=== PATIENT | male | born 1960 | race Caucasian/White ===

== ENCOUNTER 2021-02-25 10:01 | Outpatient (REF) | payer OTHER, SELFPAY ==
[2021-02-25 11:46] LABS: Hematocrit 40.7 % (42-52); Hemoglobin 13.5 g/dl (14.0-18.0); Mean Corpuscular HGB Conc 33.2 g/dl (31.0-36.0); Mean Corpuscular Hemoglobin 29.6 pg (27.0-33.0); Mean Corpuscular Volume 89.3 fL (80-98); Mean Platelet Volume 10.8 fL (9.4-12.4); Platelet Count 233 X10*3/uL (160-400); Red Blood Count 4.56 X10*6/uL (4.60-5.80); Red Cell Distribution Width 13.2 % (11.0-16.0); White Blood Count 5.9 X10*3/uL (4.8-10.8)
[2021-02-25 12:16] LABS: Alanine Aminotransferase 34 U/L (0-40); Albumin Level 4.4 g/dL (3.5-5.0); Alkaline Phosphatase 69 U/L (39-117); Anion Gap 12 (12-20); Aspartate Amino Transferase 22 U/L (5-37); Bilirubin Total 0.5 mg/dL (0.0-1.0); Blood Urea Nitrogen 17 mg/dL (9-16); Calcium 9.7 mg/dL (8.4-10.2); Carbon Dioxide 27 mmol/L (22-29); Chloride 105 mmol/L (96-108); Estimated Glomerular Filt Rate > 60; Glucose Random 90 mg/dL (60-115); Potassium 4.1 mmol/L (3.3-5.1); Sodium 140 mmol/L (135-145); Total Protein 7.1 g/dL (6.5-8.0)
== END 2021-02-25 10:02 | disposition home or self-care (01) ==
LOC: HO.LAB 10:01
PROVIDERS: PCP Internal Medicine; Referring Provider Internal Medicine; Visit Provider Nurse Practitioner Family
DX: Z01.818 Encounter for other preprocedural examination (principal); R06.83 Snoring
CPT/HCPCS: 36415; 80053; 85027; 99202; 99212

== ENCOUNTER → 2021-04-07 09:55 | Outpatient (BNVA) | payer OTHER, SELFPAY | PROVIDERS: PCP Internal Medicine; Visit Provider Urology | DX: N40.1 Benign prostatic hyperplasia with lower urinary tract symptoms (principal); N13.8 Other obstructive and reflux uropathy; R39.11 Hesitancy of micturition; R39.12 Poor urinary stream; R97.20 Elevated prostate specific antigen [PSA] | CPT/HCPCS: 99202 ==

== ENCOUNTER 2021-04-09 08:20 | Day surgery (SDC) | payer OTHER, SELFPAY ==
[2021-04-06 15:55] VITALS: BMI 30.4
--- NOTE | 2021-04-08 13:39 | HO.ANESPROP2 ---
HPI - Anesthesia Eval Consult details Narrative: 60yo M for Colonoscopy PMFSH Active Problems Active Problems: All Active Problems (Updated 04/07/21 @ 10:27 by Zach Martinez MD) Weak urinary stream (Acute) Urinary hesitancy (Acute) BPH w urinary obs/LUTS (Acute) Elevated PSA (Acute) Past Medical History Medical History (Updated 04/07/21 @ 10:27 by Zach Martinez MD) Elevated cholesterol GERD (gastroesophageal reflux disease) HTN (hypertension) Insomnia Leg pain, left Surgical History Surgical History (Updated 04/06/21 @ 15:46 by Sarah Turcios, RN) Hx of colonoscopy Social History Social History (Updated 04/06/21 @ 15:57 by Sarah Turcios, RN) Alcohol intake: current Alcohol intake frequency: a few times a week Alcohol type: beer Patient Tobacco Use Status: Former Tobacco user Quit Date: 2009 Meds Allergies Allergy/AdvReac Type Severity Reaction Status Date / Time No Known Allergies Allergy Verified 04/07/21 09:58 Home Medications Medication Instructions Recorded Confirmed Last Taken Type amitriptyline 25 mg tablet 25 mg PO BEDTIME PRN 02/25/21 04/06/21 Unknown History aspirin 81 mg tablet,delayed 81 mg PO DAILY 02/25/21 04/06/21 Unknown History release atorvastatin 40 mg tablet 40 mg PO BEDTIME 02/25/21 04/06/21 Unknown History gabapentin 800 mg tablet 800 mg PO TID 02/25/21 04/06/21 Unknown History ibuprofen 800 mg tablet 800 mg PO Q8H 02/25/21 04/06/21 Unknown History lisinopril 20 1 tab PO DAILY 02/25/21 04/06/21 Unknown History mg-hydrochlorothiazide 12.5 mg tablet metoprolol succinate 100 mg 100 mg PO DAILY 02/25/21 04/06/21 Unknown History tablet,extended release 24 hr omeprazole 20 mg capsule,delayed 20 mg PO DAILY 02/25/21 04/06/21 Unknown History release Exam Exam Date and Time: April 08, 2021 1339 Height,Weight and Vital Signs: Height 5 ft 8 in Weight 90.718 kg Pertinent Lab Results Pertinent Lab Results: Laboratory Tests 02/25/21 02/25/21 10:55 10:55 WBC 5.9 Hgb 13.5 L Hct 40.7 L Plt Count 233 Sodium 140 Potassium 4.1 Chloride 105 Carbon Dioxide 27 BUN 17 H Creatinine 0.87 Assessment and Plan Assessment Anesthesia Assessment: Chart Reviewed
[2021-04-09 08:54] VITALS: BP 129/93; PULSE 90; RESP 16; TEMP 36.8; O2SAT 98
[2021-04-09] MEDS: Lactated Ringers 1,000 ML 100 ML IVCONT (09:11)
--- NOTE | 2021-04-09 09:11 | MHC.SHP ---
Pre-Procedural Eval Section A Date of Service: 04/09/21 Section B Chief Complaint: Screening Details of Present Illness: hx of polyps Relevant Family History (Specify if Yes): No Relevant Social History: None Present Medications: see Short Stay Collaborative assessment Medical History: Significant History (Elevated cholesterol GERD (gastroesophageal reflux disease) HTN (hypertension) Insomnia Leg pain, left) History of Previous Operations: Relevant previous surgery/procedure and date(s) (colonoscopy many years ago) Allergies: Allergies Allergy/AdvReac Type Severity Reaction Status Date / Time No Known Allergies Allergy Verified 04/07/21 09:58 Review of Systems Sugical H&P ROS: Negative: Constitution, Cardiovascular, Respiratory, Neurological, Psychiatric, Hem-Onc, Allergic/Immunologic, Gastrointestinal, Genitourinary, Musculoskeletal, Integumentary, Endocrine and Eyes/Ears/Nose/Throat Exam Surgical H&P Exam: Normal: HEENT, Normal: Heart, Normal: Lungs, Normal: Extremities, Normal: Abdomen, Normal: Skin and Normal: Neurological Plan Diagnosis/Plan: Unchanged I have reviewed the history and physical and performed a pertinent physical examination on my patient. No changes have occurred unless specified.
--- NOTE | 2021-04-09 10:36 | P.BOP_ITS ---
Brief Operative Note Date of Service: 04/09/21 Pre-op diagnosis: colon screening Post-op diagnosis: same Procedure: see op note Surgeon: Valerie Zamora MD Anesthesia: MAC Was an Brim Edge Trimmer used for this Procedure?: No Estimated blood loss (mL): 0 Condition: stable Disposition: PACU
--- NOTE | 2021-04-09 10:36 | W.PM.OPN ---
Operative Note Operative Note Date of Service: 04/09/21 Narrative: Operative Information Procedure Description: Colonoscopy COLONOSCOPY Instrument: Olympus variable stiffness adult scope 190L Colonoscopy Monitoring: Vital signs and clinical assessment, continuous EKG monitoring, Pulse oximetry, Carbon Dioxide monitoring and blood pressure monitoring were done throughout the procedure. Colon withdrawal time was 11 minutes. Procedure: The patient was placed in the left lateral decubitis position and pre-procedure medications were administered. After a digital rectal examination of the ano-rectum, the video colonoscope was inserted into the rectum and advanced through the colon to the cecum/TI. The colonoscope was slowly withdrawn in a retrograde panoramic fashion and the colon mucosa was carefully examined including a retroflexed view of the rectum. Findings and interventions are described below. Procedure Difficulty: easy Findings: Terminal Ileum-normal Cecum:normal Ascending Colon: normal Transverse Colon -normal Descending Colon:normal Sigmoid Colon: mild diverticulosis noted, small tics Rectum: Retroflexion with small internal hemorrhoids, grade I Anorectum - normal Colon preparation: [place] Bowel Preparation Scale Right colon; 2 Transverse colon: 2 Left colon; 2 (0 = Unprepared colon segment with mucosa not seen due to solid stool that cannot be cleared. 1 = Portion of mucosa of the colon segment seen, but other areas of the colon segment not well seen due to staining, residual stool and/or opaque liquid. 2 = Minor amount of residual staining, small fragments of stool and/or opaque liquid, but mucosa of colon segment seen well. 3 = Entire mucosa of colon segment seen well with no residual staining, small fragments of stool or opaque liquid) Impression and Post Procedure Diagnosis: internal hemorrhoids diverticular disease Plan: High fiber diet leaflet Avoid straining at stool, epsom salts and sitz bath, anusol supps or cream Repeat Colonoscopy in 10 years or earlier if clinically indicated Above findings were reviewed with the patient and relevant handouts were provided if indicated.
[2021-04-09 10:43] VITALS: BP 110/72; PULSE 76; RESP 16; TEMP 36.9; O2SAT 100
[2021-04-09 11:05] VITALS: BP 138/91; PULSE 76; RESP 16; TEMP 36.9; O2SAT 98
--- NOTE | 2021-04-09 16:52 | HO.POSTANES ---
Post Anesthesia Evaluation Post Anesthesia Evaluation Vital Signs: Vital Signs Temp Pulse Resp BP Pulse Ox 04/09/21 11:05 98.4 F 76 16 138/91 H 98 04/09/21 10:43 98.4 F 76 16 110/72 100 04/09/21 08:54 98.2 F 90 16 129/93 H 98 Anesthesia: Monitored Mental Status: Awake Pain Control: Satisfactory Nausea/Vomiting: None Hydration: Adequate Anesthesia-Related Issues: No Anes. Related Issues
== END 2021-04-09 11:49 | disposition home or self-care (01) ==
PROVIDERS: PCP Internal Medicine; Visit Provider Internal Medicine Gastroenterology
PROC: 0DJD8ZZ Inspection of Lower Intestinal Tract, Via Natural or Artificial Opening Endoscopic (ICD-10-PCS; CPT 45378; principal; 2021-04-09 10:20)
DX: Z12.11 Encounter for screening for malignant neoplasm of colon (principal); Z86.010 Personal history of colon polyps; K57.30 Diverticulosis of large intestine without perforation or abscess without bleeding; K21.9 Gastro-esophageal reflux disease without esophagitis; K64.0 First degree hemorrhoids; I10 Essential (primary) hypertension; R06.83 Snoring; E78.00 Pure hypercholesterolemia, unspecified; Z87.891 Personal history of nicotine dependence; Z79.82 Long term (current) use of aspirin; Z79.899 Other long term (current) drug therapy
CPT/HCPCS: G0105

== ENCOUNTER → 2021-05-19 10:14 | Outpatient (BNVA) | payer OTHER, SELFPAY | PROVIDERS: Referring Provider Internal Medicine; Visit Provider Nurse Practitioner Family | DX: K21.9 Gastro-esophageal reflux disease without esophagitis (principal); K57.90 Diverticulosis of intestine, part unspecified, without perforation or abscess without bleeding | CPT/HCPCS: 99212 ==

== ENCOUNTER → 2021-09-10 09:00 | Outpatient (BNVA) | payer OTHER, SELFPAY | PROVIDERS: PCP Internal Medicine; Visit Provider Urology | DX: N40.1 Benign prostatic hyperplasia with lower urinary tract symptoms (principal); N13.8 Other obstructive and reflux uropathy; R35.1 Nocturia; R39.11 Hesitancy of micturition; R97.20 Elevated prostate specific antigen [PSA] | CPT/HCPCS: 51798; 99212 ==

== ENCOUNTER → 2021-11-17 09:45 | Outpatient (BNVA) | payer OTHER, SELFPAY | PROVIDERS: PCP Internal Medicine; Referring Provider Internal Medicine; Visit Provider Nurse Practitioner Family | DX: K57.90 Diverticulosis of intestine, part unspecified, without perforation or abscess without bleeding (principal) | CPT/HCPCS: 99212 ==

== ENCOUNTER 2021-12-24 10:43 | Outpatient (REF) | payer OTHER, SELFPAY ==
--- NOTE | ~2021-12-24 | US_ITS ---
EXAMINATION: US PELVIS LIMITED (BLADDER) CLINICAL INFORMATION: Poor urinary stream. COMPARISON: No similar priors. TECHNIQUE: Real-time imaging of the bladder. FINDINGS: BLADDER: Partially distended. Bilateral ureteral jets are demonstrated. Prevoid bladder volume is 146 mL. Postvoid bladder volume is 62.3 mL. ADDITIONAL FINDINGS: Enlarged prostate measuring 4.8 x 3.7 x 4.4 cm, volume of 41 mL. US/US bladder IMPRESSION: Enlarged prostate with increase post void bladder volume suggesting outlet obstruction.
== END 2021-12-24 10:44 | disposition home or self-care (01) ==
LOC: HO.US 10:43
PROVIDERS: Visit Provider Urology
DX: N40.1 Benign prostatic hyperplasia with lower urinary tract symptoms (principal); R39.12 Poor urinary stream; N13.8 Other obstructive and reflux uropathy
CPT/HCPCS: 76857

== ENCOUNTER 2022-03-10 08:16 | Outpatient (REF) | payer OTHER, SELFPAY ==
[2022-03-10 10:08] LABS: PSA,Total (Free>4and<10) 2.85 ng/mL (0.00-4.00)
== END 2022-03-10 08:17 | disposition home or self-care (01) ==
LOC: HO.LAB 08:16
PROVIDERS: PCP Internal Medicine; Visit Provider Urology
DX: N40.1 Benign prostatic hyperplasia with lower urinary tract symptoms (principal); N13.8 Other obstructive and reflux uropathy; Z12.5 Encounter for screening for malignant neoplasm of prostate
CPT/HCPCS: 36415; 84153

== ENCOUNTER → 2022-03-11 09:36 | Outpatient (BNVA) | payer OTHER, SELFPAY | PROVIDERS: PCP Internal Medicine; Visit Provider Urology | DX: R97.20 Elevated prostate specific antigen [PSA] (principal); N40.1 Benign prostatic hyperplasia with lower urinary tract symptoms; N13.8 Other obstructive and reflux uropathy | CPT/HCPCS: Q3014 ==

== ENCOUNTER 2023-02-25 07:27 | Outpatient (REF) | payer OTHER, SELFPAY ==
[2023-02-25 08:26] LABS: Prostate Specific Antigen 2.45 ng/mL (<0.05-4.0)
== END 2023-02-25 07:28 | disposition home or self-care (01) ==
LOC: HO.LAB 07:27
PROVIDERS: PCP Internal Medicine; Visit Provider Urology
DX: Z12.5 Encounter for screening for malignant neoplasm of prostate (principal); N13.8 Other obstructive and reflux uropathy; N40.1 Benign prostatic hyperplasia with lower urinary tract symptoms; R97.20 Elevated prostate specific antigen [PSA]
CPT/HCPCS: 36415; 84153

== ENCOUNTER 2023-03-11 10:43 | Outpatient (AMB) | payer OTHER, SELFPAY ==
--- NOTE | 2023-03-11 10:44 | MHC.OFFVIS ---
Intake Intake Visit Reasons: 1Y PSA(set) Intake Note: Patient is present for Telephone PSA Urology Med: Finasteride, Tamsulosin Antibiotic Allergy: None Blood Thinner: Aspirin Pharmacy: [facility] Allergies No Known Allergies Allergy (Verified 03/11/23 10:46) Medication List - Last Reconciled 03/11/23 by Zach Martinez MD amitriptyline 25 mg PO BEDTIME PRN aspirin 81 mg PO DAILY atorvastatin 40 mg PO BEDTIME bisacodyl (Dulcolax (bisacodyl)) 10 mg (2 x 5 mg) PO ONCE 1 day finasteride 5 mg PO DAILY 90 days gabapentin 800 mg PO TID ibuprofen 800 mg PO Q8H lisinopril-hydrochlorothiazide 20-12.5 mg 1 tab PO DAILY methylcellulose (laxative) (Citrucel) 500 mg PO DAILY metoprolol succinate ER 100 mg PO DAILY omeprazole 20 mg PO BID polyethylene glycol 3350 (Miralax) 238 grams PO ONCE HPI HPI Comments History of Present Illness Details Darío is a very pleasant male. He is a patient of Dr. Briseno. He is seen for following urologic conditions - weak stream - incomplete emptying - elevated PSA Telemedicine evaluation 15 minute consultation Babytree karrie Video attempted Improved stream maintain PSA remains low Continue 6 month review Retrograde ejaculation Stop tamsulosin Continue finasteride Lower urinary tract symptoms Progressive Initial symptoms - primarily hesitancy with weakness of stream suggestive of obstructive symptoms Current - stream improved, nocturia x1 PSA 02/11 4.4, 03/15 2.8, 03/16 2.5 No family history of prostate cancer Imaging - 02/12 Bladder ultrasound, 40 g prostate, 60 cc residual SILVIA 2+ Current therapy finasteride PFSH Medical History Elevated cholesterol GERD (gastroesophageal reflux disease) HTN (hypertension) Insomnia Leg pain, left Surgical History Hx of colonoscopy Social History Alcohol intake: current Alcohol intake frequency: a few times a week Alcohol type: beer Patient Tobacco Use Status: Former Tobacco user Quit Date: 2009 Review of Systems Const All systems reviewed & are unremarkable except as noted in HPI and below Reports no additional complaints Resp Reports no additional complaints GI Reports no additional complaints Reports as per HPI Musc Reports no additional complaints Physical Exam Telemedicine evaluation Appropriate responses Regular breathing rate and rhythm HEENT Head: Yes normal to inspection Ears: hearing grossly normal bilaterally Eyes General: appearance normal, both eyes and all related structures Neck Neck: Yes normal visual inspection Chest Chest palpation & inspection: normal inspection of the chest Resp Effort & Inspection: normal respiratory effort and able to speak in complete sentences Assessment & Plan Assessment & Plan (1) Weak urinary stream: Code(s): R39.12 - Poor urinary stream (2) Elevated PSA: Code(s): R97.20 - Elevated prostate specific antigen [PSA] (3) BPH w urinary obs/LUTS: Code(s): N40.1 - Benign prostatic hyperplasia with lower urinary tract symptoms; N13.8 - Other obstructive and reflux uropathy Plan 6 month follow-up office labs Orders: Orders Prostate Specific Antigen 6 Months N13.8 - Other obstructive and reflux uropathy, N40.1 - Benign prostatic hyperplasia with lower urinary tract symptoms Medications: Refilled finasteride 5 mg PO DAILY 90 days 90 tabs 2RF N13.8 - Other obstructive and reflux uropathy, N40.1 - Benign prostatic hyperplasia with lower urinary tract symptoms, R33.9 - Retention of urine, unspecified, R39.12 - Poor urinary stream Discontinued tamsulosin Discontinued Reason: Doctor's Order 0.4 mg PO BEDTIME 90 days 90 caps 1RF N40.1 - Benign prostatic hyperplasia with lower urinary tract symptoms, R35.1 - Nocturia, R39.12 - Poor urinary stream Patient Instructions: Imaging studies, laboratory and physical exam results were discussed and reviewed in detail. No major barriers to patient understanding were identified. An opportunity to ask questions regarding the treatment plan was provided. All questions were answered. The patient expressed understanding and agreement with the above treatment plan. The patient is aware they should contact our office by phone for worsening of their current condition or the appearance of new urologic symptoms. Compliance is encouraged with any medications and followup testing that is ordered. It is a privilege to participate in the urologic care of your patient. If you have any questions or concerns regarding treatment for the above conditions, or other urologic issues, please do not hesitate to contact me. The office telephone contact is [phone]. This note is constructed using voice recognition software. While every effort has been made to ensure accuracy fugitive investigator errors may have been included. Yours sincerely, Dr Zahc Martinez MD, [facility] - Urology Providers of Expert, Compassionate Care for the Genitourinary System Telehealth Telehealth Location of provider rendering services: practice address Location of patient: address on file Patient Identification confirmed using: Name, : Yes Telehealth method: video Patient verbally consented to treatment: Yes Patient verbally consented to billing insurance company: Yes Patient informed of any privacy concerns related to visit: Yes Coding Level of Care Code Tele Est Pt Level 3 (58789) Diagnoses Weak urinary stream R39.12 Elevated PSA R97.20 BPH w urinary obs/LUTS N40.1; N13.8
== END 2023-03-11 11:51 | disposition home or self-care (01) ==
LOC: HO.HUSH 10:43
PROVIDERS: PCP Internal Medicine; Visit Provider Urology
DX: N40.1 Benign prostatic hyperplasia with lower urinary tract symptoms (principal); R39.12 Poor urinary stream; R97.20 Elevated prostate specific antigen [PSA]; N13.8 Other obstructive and reflux uropathy
CPT/HCPCS: 99213

== ENCOUNTER → 2023-03-11 10:43 | Outpatient (BNVA) | payer OTHER, SELFPAY | PROVIDERS: PCP Internal Medicine; Visit Provider Urology | DX: N40.1 Benign prostatic hyperplasia with lower urinary tract symptoms (principal); N13.8 Other obstructive and reflux uropathy; R97.20 Elevated prostate specific antigen [PSA]; R39.12 Poor urinary stream; R33.9 Retention of urine, unspecified | CPT/HCPCS: Q3014 ==

== ENCOUNTER 2023-11-17 14:30 | Outpatient (REF) | payer OTHER, SELFPAY | END 2023-11-17 14:31 | disposition home or self-care (01) | LOC: HO.LAB 14:30 | PROVIDERS: PCP Internal Medicine; Visit Provider Urology | DX: Z12.5 Encounter for screening for malignant neoplasm of prostate (principal); N40.1 Benign prostatic hyperplasia with lower urinary tract symptoms; N13.8 Other obstructive and reflux uropathy | CPT/HCPCS: 36415; 84153 ==

== ENCOUNTER 2023-11-22 15:27 | Outpatient (AMB) | payer OTHER, SELFPAY ==
--- NOTE | 2023-11-22 15:27 | A.OFFVIS_ITS ---
Intake Visit Reasons: PSA Follow Up(set)Confirmed Intake Note: Patient is Present for Telephone Follow Up For Urology Med: Finasteride, Tamsulosin Antibiotic Allergy:None Blood Thinner: Aspirin Allergies No Known Allergies Allergy (Verified 03/11/23 10:46) Medication List - Last Reconciled 11/22/23 by Zach Martinez MD amitriptyline 25 mg PO BEDTIME PRN aspirin 81 mg PO DAILY atorvastatin 40 mg PO BEDTIME bisacodyl (Dulcolax (bisacodyl)) 10 mg (2 x 5 mg) PO ONCE 1 day finasteride 5 mg PO DAILY 90 days gabapentin 800 mg PO TID ibuprofen 800 mg PO Q8H lisinopril-hydrochlorothiazide 20-12.5 mg 1 tab PO DAILY methylcellulose (laxative) (Citrucel) 500 mg PO DAILY metoprolol succinate ER 100 mg PO DAILY omeprazole 20 mg PO BID polyethylene glycol 3350 (Miralax) 238 grams PO ONCE tamsulosin 0.4 mg PO BEDTIME 90 days HPI Comments Details: Darío is a very pleasant male. He is a patient of Dr. Briseno. He is seen for following urologic conditions - weak stream - incomplete emptying - elevated PSA Telemedicine evaluation 15 minute consultation [employer] karrie Video attempted Came off tamsulosin and had trouble with urination Will be restarted on combination therapy tamsulosin plus finasteride Six-month follow-up PVR office Lower urinary tract symptoms Progressive Initial symptoms - primarily hesitancy with weakness of stream suggestive of obstructive symptoms Current - stream improved, nocturia x1 PSA 02/11 4.4, 03/15 2.8, 03/16 2.5, 11/15 2.7 No family history of prostate cancer Imaging - 02/12 Bladder ultrasound, 40 g prostate, 60 cc residual SILVIA 2+ Current therapy finasteride and tamsulosin Previously try coming off tamsulosin but had persistent symptoms return [facility] Medical History Elevated cholesterol GERD (gastroesophageal reflux disease) HTN (hypertension) Insomnia Leg pain, left Surgical History Hx of colonoscopy Social History Alcohol intake: current Alcohol intake frequency: a few times a week Alcohol type: beer Patient Tobacco Use Status: Former Tobacco user Quit Date: 2009 Review of Systems Const All systems reviewed & are unremarkable except as noted in HPI and below Reports no additional complaints Resp Reports no additional complaints GI Reports no additional complaints Reports as per HPI Musc Reports no additional complaints Physical Exam Telemedicine evaluation Appropriate responses Regular breathing rate and rhythm HEENT Head: Yes normal to inspection Ears: hearing grossly normal bilaterally Eyes General: appearance normal, both eyes and all related structures Neck Neck: Yes normal visual inspection Chest Chest palpation & inspection: normal inspection of the chest Resp Effort & Inspection: normal respiratory effort and able to speak in complete sentences Telehealth Telehealth Telehealth Platform: [employer] Location of provider rendering services: practice address Location of patient: address on file Patient Identification confirmed using: Name, : Yes Telehealth method: video Patient verbally consented to treatment: Yes Patient verbally consented to billing insurance company: Yes Patient informed of any privacy concerns related to visit: Yes Minutes spent on Phone/Video with Pt.: 15 Assessment & Plan Assessment & Plan (1) BPH w urinary obs/LUTS: Code(s): N40.1 - Benign prostatic hyperplasia with lower urinary tract symptoms; N13.8 - Other obstructive and reflux uropathy Category: Medical (2) Nocturia more than twice per night: Code(s): R35.1 - Nocturia Category: Medical (3) Weak urinary stream: Code(s): R39.12 - Poor urinary stream Category: Medical Plan Six month follow-up PVR Medications: Changed From tamsulosin 0.4 mg PO BEDTIME 30 days 30 caps 1RF To tamsulosin 0.4 mg PO BEDTIME 90 days 90 caps 1RF Refilled finasteride 5 mg PO DAILY 90 days 90 tabs 1RF N13.8 - Other obstructive and reflux uropathy, N40.1 - Benign prostatic hyperplasia with lower urinary tract symptoms, R39.12 - Poor urinary stream Patient Instructions: Imaging studies, laboratory and physical exam results were discussed and reviewed in detail. No major barriers to patient understanding were identified. An opportunity to ask questions regarding the treatment plan was provided. All questions were answered. The patient expressed understanding and agreement with the above treatment plan. The patient is aware they should contact our office by phone for worsening of their current condition or the appearance of new urologic symptoms. Compliance is encouraged with any medications and followup testing that is ordered. It is a privilege to participate in the urologic care of your patient. If you have any questions or concerns regarding treatment for the above conditions, or other urologic issues, please do not hesitate to contact me. The office telephone contact is [phone]. This note is constructed using voice recognition software. While every effort has been made to ensure accuracy medical sociologist errors may have been included. Yours sincerely, Dr Zach Martinez MD, [facility] - Urology Providers of Expert, Compassionate Care for the Genitourinary System Coding Level of Care Code Tele Est Pt Level 3 (37049) Diagnoses BPH w urinary obs/LUTS N40.1; N13.8 Nocturia more than twice per night R35.1 Weak urinary stream R39.12
== END 2023-11-22 16:03 | disposition home or self-care (01) ==
LOC: HO.HUSH 15:27
PROVIDERS: PCP Internal Medicine; Visit Provider Urology
DX: N40.1 Benign prostatic hyperplasia with lower urinary tract symptoms (principal); N13.8 Other obstructive and reflux uropathy; R35.1 Nocturia; R39.12 Poor urinary stream
CPT/HCPCS: 99213

== ENCOUNTER → 2023-11-22 15:27 | Outpatient (BNVA) | payer OTHER, SELFPAY | PROVIDERS: PCP Internal Medicine; Visit Provider Urology ==

== ENCOUNTER 2024-08-27 09:26 | Outpatient (REF) | payer OTHER, SELFPAY ==
[2024-08-27 14:13] LABS: MANUAL DIFF FLAG NO
[2024-08-27 14:16] LABS: Basophils Absolute Auto 0.1 X10*3/uL (0.0-0.2); Basophils Percent Auto 0.9 % (0-2); Eosinophils Absolute Auto 0.2 X10*3/uL (0.0-0.4); Eosinophils Percent Auto 3.2 % (0-4); Hematocrit 42.9 % (42.0-52.0); Hemoglobin 14.2 g/dl (14.0-18.0); Imm Gran Abs Auto 0.05 X10*3/uL (0.00-0.03); Imm Gran Pct Auto 0.7 % (0.0-0.4); Lymphocytes Percent Auto 25.9 % (20-40); Mean Corpuscular HGB Conc 33.1 g/dl (31.0-36.0); Mean Corpuscular Hemoglobin 29.2 pg (27.0-33.0); Mean Corpuscular Volume 88.1 fL (80.0-98.0); Monocytes Percent Auto 12.7 % (2-11); Neutrophils Absolute Auto 4.3 x10*3/uL (2.0-8.3); Neutrophils Percent Auto 56.6 % (45-73); Platelet Count 273 X10*3/uL (160-400); Red Blood Count 4.87 X10*6/uL (4.60-5.80); Red Cell Distribution Width 14.1 % (11.0-16.0); White Blood Count 7.6 X10*3/uL (4.8-10.8)
[2024-08-27 15:04] LABS: Alanine Aminotransferase 64 U/L (0-40); Albumin Level 4.2 g/dL (3.5-5.0); Anion Gap 15 (12-20); Aspartate Amino Transferase 54 U/L (5-37); Bilirubin Total 0.7 mg/dL (0.0-1.0); Blood Urea Nitrogen 10 mg/dL (9-16); Calcium 9.5 mg/dL (8.4-10.2); Carbon Dioxide 23 mmol/L (22-29); Chloride 103 mmol/L (96-108); Cholesterol 173 mg/dL (<200); Estimated Glomerular Filt Rate > 60; Glucose Random 124 mg/dL (60-115); HDL Cholesterol 34 mg/dL (>40); Potassium 3.7 mmol/L (3.3-5.1); Sodium 137 mmol/L (135-145); Total Protein 7.6 g/dL (6.5-8.0); Triglycerides 415 mg/dL (<150)
[2024-08-27 16:52] LABS: Alkaline Phosphatase 98 U/L (39-117)
== END 2024-08-27 09:27 | disposition home or self-care (01) ==
LOC: HO.CHCLDS 09:26
PROVIDERS: Visit Provider Internal Medicine
DX: I10 Essential (primary) hypertension (principal)
CPT/HCPCS: 36415; 80053; 80061; 85025

== ENCOUNTER 2025-01-09 15:07 | Outpatient (AMB) | payer OTHER, SELFPAY ==
--- NOTE | 2025-01-09 15:16 | MHC.OFFVIS ---
Intake Visit Reasons: follow up/PVR Intake Note: Patient is present for PVR/F/U Urology Medication:TAMSULOSIN,FINASTERIDE Antibiotic Allergy:NONE Blood Thinner:ASPIRIN TODAY'S PVR: 0ML'S Career Counselor Required: No Allergies No Known Allergies Allergy (Verified 01/09/25 15:18) HPI Comments Details: Darío is a very pleasant male. He is a patient of Dr. Briseno. He is seen for following urologic conditions - weak stream - incomplete emptying - elevated PSA Six-month follow-up lower urinary tract symptoms Combination therapy Current PVR 0 cc Significant improvement of urination with combination therapy Follow-up 12 months UA 2+ glucose no diagnosis of diabetes Lower urinary tract symptoms Progressive Initial symptoms - primarily hesitancy with weakness of stream suggestive of obstructive symptoms Current - stream improved, nocturia x1 PSA 02/11 4.4, 03/15 2.8, 03/16 2.5, 11/15 2.7 No family history of prostate cancer Imaging - 02/12 Bladder ultrasound, 40 g prostate, 60 cc residual SILVIA 2+ Current therapy finasteride and tamsulosin Previously try coming off tamsulosin but had persistent symptoms return [facility] Medical History Elevated cholesterol GERD (gastroesophageal reflux disease) HTN (hypertension) Insomnia Leg pain, left Surgical History Hx of colonoscopy Social History (System 04/10/24 @ 14:25 by Stephy Martinez) Alcohol intake: current Alcohol intake frequency: a few times a week Alcohol type: beer Patient Tobacco Use Status: Former Tobacco user Review of Systems Const Denies chills and Denies fever(s) Card Reports no additional complaints and Denies syncope Resp Denies cough GI Denies abdominal pain and Denies heartburn Reports as per HPI and Denies change in libido Neuro Denies syncope Psych Denies change in libido Endo Denies change in libido Physical Exam Const General: cooperative, healthy appearing, comfortable and no acute distress Orientation/consciousness: patient oriented x3 HEENT Face and sinus: Yes normal facial exam Mouth: moist mucous membranes Neck Neck: Yes normal visual inspection, Yes full ROM and Yes trachea midline Chest Chest palpation & inspection: normal inspection of the chest Resp Effort & Inspection: normal respiratory effort, able to speak in complete sentences and no respiratory distress GI Inspection: Yes normal to inspection Back/Spine/Pelvis Cervical Spine: normal cervical lordosis Thoracic/Lumbar Spine: thoracic and lumbar spine normal to inspection Skin General skin exam: no rashes or lesions noted Neuro General: patient oriented x3, gait normal, tone normal and moves all extremities Extrem General: Yes normal to inspection and Yes capillary refill normal Office Procedures Post Void Residual Post Residual Void Post Void Residual (PVR): 0 64030-Zvab Void Residual by ultrasound Results AMB Urinalysis, Automated UA Leukoctes 0 Daniel/uL Last Edit by PATTIE Last on 01/09/25 15:58 UA Nitrite Negative Last Edit by Caro Caal CCM on 01/09/25 15:58 UA Urobilinogen 0.2 mg/dL Last Edit by Caro Caal CCM on 01/09/25 15:58 UA Protein 15 mg/dL Last Edit by Caro Caal CCM on 01/09/25 15:58 UA pH 7.0 Last Edit by Caro Caal [facility] on 01/09/25 15:58 UA Blood 0 Jose Alfredo/uL Last Edit by Caro Caal [facility] on 01/09/25 15:58 UA Specific [place] 1.010 Last Edit by PATTIE Last on 01/09/25 15:58 UA Ketone Negative Last Edit by Caro Caal [facility]CM on 01/09/25 15:58 UA Bilirubin 0 mg/dL Last Edit by Caro Caal [facility] on 01/09/25 15:58 UA Glucose 250 mg/dL Last Edit by Caro Caal [facility] on 01/09/25 15:58 Assessment & Plan Assessment & Plan (1) Elevated PSA: Code(s): R97.20 - Elevated prostate specific antigen [PSA] Category: Medical (2) BPH w urinary obs/LUTS: Code(s): N40.1 - Benign prostatic hyperplasia with lower urinary tract symptoms; N13.8 - Other obstructive and reflux uropathy Category: Medical (3) Urinary hesitancy: Code(s): R39.11 - Hesitancy of micturition Category: Medical Plan Twelve month follow-up PSA and PVR office Orders: Orders PSA,Total (Free>4and<10) 12 Months N13.8 - Other obstructive and reflux uropathy, N40.1 - Benign prostatic hyperplasia with lower urinary tract symptoms AMB Urinalysis Automated Today Z13.9 - Encounter for screening, unspecified Medications: Refilled tamsulosin 0.4 mg PO BEDTIME 90 caps 3RF 90 days N13.8 - Other obstructive and reflux uropathy, N40.1 - Benign prostatic hyperplasia with lower urinary tract symptoms finasteride . 5 mg PO DAILY 90 tabs 3RF 90 days N13.8 - Other obstructive and reflux uropathy, N40.1 - Benign prostatic hyperplasia with lower urinary tract symptoms, R39.12 - Poor urinary stream Patient Instructions: This note is constructed using voice recognition software. While every effort has been made to ensure accuracy cath laboratory technician errors may have been included. Imaging studies, laboratory and physical exam results were discussed and reviewed in detail. No major barriers to patient understanding were identified. An opportunity to ask questions regarding the treatment plan was provided. All questions were answered. The patient expressed understanding and agreement with the above treatment plan. The patient is aware they should contact our office by phone for worsening of their current condition or the appearance of new urologic symptoms. Compliance is encouraged with any medications and followup testing that is ordered. It is a privilege to participate in the urologic care of your patient. If you have any questions or concerns regarding treatment for the above conditions, or other urologic issues, please do not hesitate to contact me. The office telephone contact is [phone]. Sincerely, Dr Zach Martinez MD, [facility] - Urology Compassionate Specialist Care for the Genitourinary System Coding Level of Care Code Est Pt Level 4 (58937) Complex EM visit Add On G2211 Diagnoses Elevated PSA R97.20 BPH w urinary obs/LUTS N40.1; N13.8 Urinary hesitancy R39.11 CPT Codes Post Residual Void - PVR CPT Code: 13239-Txro Void Residual by ultrasound ([id number])
--- OUTSIDE RECORDS SUMMARY | 2025-01-09 17:26 | XMS_ITS | Encounter Summary ---
Author Organization [employer] Address [facility] [address] [place] [address] Care Team Providers Care Draw In Hand Name Role Phone Earl Augustine MD Primary Care Prov ider Encounter Details Date Type Department Care Team ([facility] st Contact Info) Description 01/07/2025 Orders Only [facility] MED & PEDS [address] [place] [address] Earl Augustine MD [address] [place] [address] Social History Tobacco Use Types Packs/Day Years Used Date Smoking Tobacco: Former Cigarettes 0.5 10 0 07/28/1999 - 07/28/2009 Depression Answer Date Recorded Patient Health Questionnaire-9 Score 0 11/30/2022 Housing Stability Answer Date Recorded What is your housing situation today? I have cate mack 12/25/[address] you li ve. Do you have problems with any of the following? None of the above 12/25/2024 Food Insecurity Answer Date Recorded Within the past 12 months, y ou worried that your food would run out before you got money to buy more: Never True 2024 Within the past 12 months,th e food you bought just didn't last and you didn't have enough money to get more: Sometimes True 12/25/2024 Transportation Answer Date Recorded In the past 12 months, has l ack of transportation kept you from medical appts, meetings, work or from getting things needed for daily living? No 12/25/2024 Utilities Answer Date Recorded In the past 12 months, has t he electric, gas, oil or water company threatened to shut off services in your home? No 12/25/2024 Depression Answer Date Recorded Patient Health Questionnaire-2 Score 0 02/29/2024 Internet Access Answer Date Recorded Internet Access Q1 Yes 12/25/2024 Internet Access Q2 Not on file 12/25/2024 Sex and Gender Information Value Date Recorded Sex Assigned at Male 05/24/2022 10:29 AM EDT Legal Sex Male 10:29 AM EDT Gender Identity Male 05/24/2022 10:29 AM EDT Sexual Orientation Straight 05/24/2022 10 :29 AM EDT documented as of this encounter Plan of Treatment Upcoming Encounters Date Type Department Care Team (Late st Contact Info) Description 02/21/2025 9:30 AM EDT Telemedicine [facility] MED & PEDS [address] [place] [address] Earl Augustine MD [address] [place] [address] documented as of this encounter Visit Diagnoses Not on filedocumented in this encounter Additional Health Concerns Assessment Noted Time PHQ-9 Depression Total Score: 0 12/01/19 23 8:43 AM EDT documented as of this encounter Care Teams Draw In Hand Relationship Specialty Start Date End Date Earl Augustine MD [address] [place] [address] PCP - General Internal Medicine 12/19/19 documented as of this encounter
== END 2025-01-09 16:03 | disposition home or self-care (01) ==
LOC: HO.HUSH 15:08
PROVIDERS: PCP Internal Medicine; Visit Provider Urology
DX: R97.20 Elevated prostate specific antigen [PSA] (principal); N40.1 Benign prostatic hyperplasia with lower urinary tract symptoms; N13.8 Other obstructive and reflux uropathy; R39.11 Hesitancy of micturition; Z13.9 Encounter for screening, unspecified
CPT/HCPCS: 99214; G2211

== ENCOUNTER → 2025-01-09 15:07 | Outpatient (BNVA) | payer OTHER, SELFPAY | PROVIDERS: PCP Internal Medicine; Visit Provider Urology | DX: N40.1 Benign prostatic hyperplasia with lower urinary tract symptoms (principal); N13.8 Other obstructive and reflux uropathy; R97.20 Elevated prostate specific antigen [PSA]; R39.11 Hesitancy of micturition | CPT/HCPCS: 51798; 81003; 99212 ==

== ENCOUNTER 2025-04-10 15:15 | Outpatient (AMB) | payer OTHER, SELFPAY ==
--- NOTE | 2025-04-10 15:16 | MHC.OFFVIS ---
Intake Visit Reasons: Possible UTI Intake Note: Patient is present for possible UTI c/o dysuria , abdominal pain , Urology Medication:TAMSULOSIN,FINASTERIDE, AMITRIPTYLINE Antibiotic Allergy:NONE Blood Thinner:ASPIRIN TODAY'S PVR: 84 mls Data Support Specialist Required: No Accompanied by: Self / Same As Patient Allergies No Known Allergies Allergy (Verified 04/10/25 15:16) HPI Comments Details: Darío is a very pleasant male. He is a patient of Dr. Briseno. He is seen for following urologic conditions - weak stream - incomplete emptying - elevated PSA Three-month follow-up UA clear Had symptoms suggestive of UTI 2 weeks ago These have resolved Did discuss issue of sugar in urine Lower urinary tract symptoms Progressive Initial symptoms - primarily hesitancy with weakness of stream suggestive of obstructive symptoms Current - stream improved, nocturia x1 PSA 02/11 4.4, 03/15 2.8, 03/16 2.5, 11/15 2.7 No family history of prostate cancer Imaging - 02/12 Bladder ultrasound, 40 g prostate, 60 cc residual SILVIA 2+ Current therapy finasteride and tamsulosin Previously try coming off tamsulosin but had persistent symptoms [facility] Medical History Elevated cholesterol GERD (gastroesophageal reflux disease) HTN (hypertension) Insomnia Leg pain, left Surgical History Hx of colonoscopy Social History (System 04/10/24 @ 14:25 by Stephy Martinez) Alcohol intake: current Alcohol intake frequency: a few times a week Alcohol type: beer Patient Tobacco Use Status: Former Tobacco user Review of Systems Const Denies chills and Denies fever(s) Card Reports no additional complaints and Denies syncope Resp Denies cough GI Denies abdominal pain and Denies heartburn Reports as per HPI and Denies change in libido Neuro Denies syncope Psych Denies change in libido Endo Denies change in libido Physical Exam Const General: cooperative, healthy appearing, comfortable and no acute distress Orientation/consciousness: patient oriented x3 HEENT Face and sinus: Yes normal facial exam Mouth: moist mucous membranes Neck Neck: Yes normal visual inspection, Yes full ROM and Yes trachea midline Chest Chest palpation & inspection: normal inspection of the chest Resp Effort & Inspection: normal respiratory effort, able to speak in complete sentences and no respiratory distress GI Inspection: Yes normal to inspection Back/Spine/Pelvis Cervical Spine: normal cervical lordosis Thoracic/Lumbar Spine: thoracic and lumbar spine normal to inspection Skin General skin exam: no rashes or lesions noted Neuro General: patient oriented x3, gait normal, tone normal and moves all extremities Extrem General: Yes normal to inspection and Yes capillary refill normal Office Procedures Post Void Residual Post Residual Void Post Void Residual (PVR): 84 [id number] Void Residual by ultrasound Results AMB Urinalysis, Automated UA Leukoctes 0 Daniel/uL Last Edit by PATTIE Polanco on 04/10/25 16:00 UA Nitrite Last Edit by PATTIE Polanco on 04/10/25 16:00 UA Urobilinogen 0.2 mg/dL Last Edit by PATTIE Polanco on 04/10/25 16:00 UA Protein 0 mg/dL Last Edit by PATTIE Polanco on 04/10/25 16:00 UA pH 7.5 Last Edit by PATTIE Polanco on 04/10/25 16:00 UA Blood 0 Jose Alfredo/uL Last Edit by PATTIE Polanco on 04/10/25 16:00 UA Specific [place] 1.010 Last Edit by PATTIE Polanco on 04/10/25 16:00 UA Ketone Last Edit by PATTIE Polanco on 04/10/25 16:00 UA Bilirubin 0 mg/dL Last Edit by PATTIE Polanco on 04/10/25 16:00 UA Glucose 5 mg/dL Last Edit by Carin Suárez CCM on 04/10/25 16:00 Assessment & Plan Assessment & Plan (1) Nocturia more than twice per night: Code(s): R35.1 - Nocturia Category: Medical (2) Dysuria: Code(s): R30.0 - Dysuria Category: Medical Plan Keep follow-up Orders: Orders AMB Urinalysis Automated Today Z13.9 - Encounter for screening, unspecified AMB Post Void Residual by ultrasound Today N13.8 - Other obstructive and reflux uropathy, N40.1 - Benign prostatic hyperplasia with lower urinary tract symptoms Patient Instructions: This note is constructed using voice recognition software. While every effort has been made to ensure accuracy marine engine machinist errors may have been included. Imaging studies, laboratory and physical exam results were discussed and reviewed in detail. No major barriers to patient understanding were identified. An opportunity to ask questions regarding the treatment plan was provided. All questions were answered. The patient expressed understanding and agreement with the above treatment plan. The patient is aware they should contact our office by phone for worsening of their current condition or the appearance of new urologic symptoms. Compliance is encouraged with any medications and followup testing that is ordered. It is a privilege to participate in the urologic care of your patient. If you have any questions or concerns regarding treatment for the above conditions, or other urologic issues, please do not hesitate to contact me. The office telephone contact is [phone]. Sincerely, Dr Zach Martinez MD, [facility] - Urology Compassionate Specialist Care for the Genitourinary System Coding Level of Care Code Est Pt Level 3 (69702) Diagnoses Nocturia more than twice per night R35.1 Dysuria R30.0 CPT Codes Post Residual Void - PVR CPT Code: 35708-Oyok Void Residual by ultrasound ([id number])
--- OUTSIDE RECORDS SUMMARY | 2025-04-10 18:45 | XMS_ITS | Encounter Summary ---
Author Organization [employer] Address [address] [facility] 7 [place] [address] Care Team Providers Care Studio Coordinator Name Role Phone Earl Augustine MD Primary Care Prov ider Reason for Visit * Reason Onset Date Comments Nurse Triage 02/18/2025 Encounter Details Date Type Department Care Team ([facility] st Contact Info) Description 02/18/2025 Telephone [facility] MED & PEDS [address] [place] [address] Earl Augustine MD [address] [place] [address] Nurse Triage Social History Tobacco Use Types Packs/Day Years [...] AM EDT documented as of this encounter Miscellaneous Notes * Telephone Encounter - Fallon Aquino RN - 02/18/2025 1:02 PM EDT Triage call [place] [facility] [place] [id number] Ismael Pt didn't answer x2. Left voice message to call [facility] triage line [phone]. * Telephone Encounter - Angel Gutierrez - 02/18/2025 12:00 PM EDT Symptom: Hip Pain - Not From Injury Outcome: Schedule an urgent appointment (within 1 hour) or talk to a nurse or provider soon Reason: Trouble walking The caller accepted this outcome. Contact pt at [phone] documented in this encounter Plan of Treatment Not on file documented as of this encounter Visit Diagnoses Not on filedocumented in this encounter Additional Health Concerns Assessment Noted Time PHQ-9 Depression Total Score: 0 12/01/19 23 8:43 AM EDT documented as of this encounter Care Teams Studio Coordinator Relationship Specialty Start Date End Date Earl Augustine MD [address] [place] [address] PCP - General Internal Medicine 12/19/19 documented as of this encounter
--- OUTSIDE RECORDS SUMMARY | 2025-04-10 18:45 | XMS_ITS | Encounter Summary ---
Author Organization [employer] Address [address] [facility] [address] [place] [address] Care Team Providers Care Trigonometry Tutor Name Role Phone Earl Augustine MD Primary Care Prov ider Encounter Details Date Type Department Care Team ([facility] st Contact Info) Description 01/07/2025 Orders Only [facility] MED & PEDS [address] [place] [address] Earl Augustine MD [address] [place] [address] Social History Tobacco Use Types Packs/Day Years [...] as of this encounter Plan of Treatment Not on file documented as of this encounter Visit Diagnoses Not on filedocumented in this encounter Additional Health Concerns Assessment Noted Time PHQ-9 Depression Total Score: 0 12/01/19 23 8:43 AM EDT documented as of this encounter Care Teams Trigonometry Tutor Relationship Specialty Start Date End Date Earl Augustine MD [address] [place] [address] PCP - General Internal Medicine 12/19/19 documented as of this encounter
--- OUTSIDE RECORDS SUMMARY | 2025-04-10 18:45 | XMS_ITS | Clinical Summary ---
Author Organization [employer] Address [address] [facility] [address] [place] [address] Care Team Providers Care Senior Quality Assurance Specialist Name Role Phone Earl Augustine MD Primary Care Prov ider Allergies No known active allergies Medications * This document contains information received from the source organization and may not represent a complete record from that organization. finasteride (Proscar) 5 MG tablet TAKE 1 TABLET BY MOUTH EVERY DAY FOR 90 DAYS 3 Active gabapentin (Neurontin) 800 MG tablet TAKE 1 TABLET BY MOUTH 3 TIMES DAILY. 180 tablet 5 4 Active metoprolol succinate XL (Toprol-XL) 100 MG 24 hr tablet TAKE 1 TABLET BY MOUTH EVERY DAY 90 tablet 5 4 Active terbinafine (SM Athletes Foot) 1 % creamIndications:T inea pedis of both feet,Tinea corporis Apply topically 2 times daily. 30 g 4 Active econazole nitrate 1 % cream Apply topically 2 times daily. 30 g 1 5 Active atorvastatin (Lipitor) 40 MG tabletIndications: Mixed hyperlipidemia TAKE 1 TABLET BY MOUTH EVERY DAY IN THE MORNING 90 tablet 1 5 Active tamsulosin (Flomax) 0.4 MG 24 hr capsule Take 1 capsule (0.4 mg) by mouth Once per day. 30 capsule 5 Active lisinopril-hydroCH LOROthiazide 20-12.5 MG tabletIndications: Tinea pedis TAKE 1 TABLET BY MOUTH EVERY DAY IN THE MORNING 90 tablet 5 Active phentermine 15 MG capsule Take 1 capsule (15 mg) by mouth before breakfast. 30 capsule 5 Active topiramate (Topamax) 50 MG tablet Take 1 tablet (50 mg) by mouth Once per day. 30 tablet 5 Active Aspirin Low Dose 81 MG EC tablet TAKE 1 TABLET (81 MG) BY MOUTH IN THE MORNING 90 tablet 3 5 Active ibuprofen 800 MG tablet TAKE 1 TABLET (800 MG) BY MOUTH EVERY 8 (EIGHT) HOURS IF NEEDED FOR MODERATE PAIN OR FEVER. 90 tablet 5 Active omeprazole (PriLOSEC) [address] capsule TAKE 1 CAPSULE BY MOUTH TWICE A DAY 180 capsule 1 5 Active Active Problems Problem Noted Date Diagnosed Date Class 1 obesity due to exces s calories with serious comorbidity and body mass index (BMI) of 34.0 to 34.9 in adult 01/02/2025 Assessment & Plan (02/21/2025 10:18 AM EDT): On phentermine and topamax, tolerated treatmetn, encouraged to keep a low calorie diet, follow up in 3months Assessment & Plan (01/02/2025 4:40 PM EDT): Will start on phentermine and topamax, keep low calorie diet, exercise, follow up in 1 month Screening for colon cancer 11/30/2022 Assessment & Plan (11/30/2022 8:52 AM EDT): Done in 2020 next in 10 years Bilateral carpal tunnel syndrome 11/30/2022 Assessment & Plan (11/30/2022 12:26 PM EDT): Phalen test was positive, patient does not want to undergo EMG, will provide wrist splints to be worn at night 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 Hyperlipidemia 11/12/2022 Assessment & Plan (02/21/2025 10:11 AM EDT): On statin therapy, new labs ordered for guidance of therapy Assessment & Plan (07/19/2024 2:47 PM EST): On atorvastatin, new labs ordered for guidance of therapy, no side effects reported Assessment & Plan (03/24/2024 11:34 PM EDT): On atorvastatin, will order new labs for guidance of therapy Gastroesophageal reflux disease without esophagi tis 11/12/2022 Flat foot 11/12/2022 Chronic low back pain 11/12/2022 Chronic anemia 11/12/2022 Benign hypertension 11/12/2022 Assessment & Plan (02/21/2025 10:11 AM EDT): Controlled, keep low sodium diet and exercise as tolerated, keep bp log Assessment & Plan (01/02/2025 4:39 PM EDT): Controlled, keep low sodium diet and exercise as tolerated, keep bp log, target <140/90 Assessment & Plan (10/23/2024 2:57 PM EDT): Controlled, continue low sodium doiet and exercise as tolerated, labs reviewed, follow up in 3 months Assessment & Plan (07/19/2024 2:46 PM EST): Controlled, continue low sodium diet and exercise as tolerated, keep bp log, no changes will be made, labs pending Assessment & Plan (03/24/2024 11:34 PM EDT): Controlled, continue current therapy, keep low sodium diet and exercise as tolerated, keep bp log, follow up in 4 months Encounters Date Type Department Care Team Description 04/02/2025 Telephone [facility] [address] [place] [address] Earl Augustine MD Nurse Triage 03/22/2025 Telephone [facility] [address] [place] [address] Earl Augustine MD Nurse Triage 03/09/2025 Refill [facility] [address] [place] [address] Earl Augustine MD 02/23/2025 Refill [facility] [address] [place] [address] Audrey ArlinCORIN landry 02/22/2025 Refill [facility] [address] [place] [address] Earl Augustine MD 02/21/2025 9:30 AM EDT Telemedicine [facility] [address] [place] [address] Earl Augustine MD Benign hypertension (Primary Dx); Dietary counseling; Exercise counseling; Pulmonary granuloma (CMS/HCC); Schwannoma of spinal cord (CMS/HCC); Mixed hyperlipidemia; Class 1 obesity due to excess calories with serious comorbidity and body mass index (BMI) of 34.0 to 34.9 in adult 02/21/2025 Travel 02/20/2025 Telephone [facility] [address] [place] [address] Earl Augustine MD chart prep 02/18/2025 Telephone [facility] [address] [place] [address] Earl Augustine MD Nurse Triage 01/20/2025 Refill [facility] [address] [place] [address] Earl Augustine MD 01/19/2025 Refill [facility] [address] [place] [address] Earl Augustine MD Tinkartik pedis from Last 3 Months Immunizations Immunization Administration Dates Next Due TD (adult), 2 Lf tetanus tox oid, preservative free, adsorbed 11/23/2016 Social History Tobacco Use Types Packs/Day Years Used Date Smoking Tobacco: Former Cigarettes 0.5 10 0 07/28/1999 - 07/28/2009 Tobacco Cessation:Counseling Given: Not Answered Depression Answer Date Recorded Patient Health Questionnaire-9 [...] Orientation Straight 05/24/2022 10 :29 AM EDT Last Filed Vital Signs Vital Sign Reading Time Taken Comments Blood Pressure 134/76 01/02/2025 3:27 PM EDT Pulse 67 01/02/2025 3:27 PM EDT Temperature 36.6 C (97.8 F) 01/02/2025 3:27 PM EDT Respiratory Rate 20 01/02/2025 3:27 PM EDT Oxygen Saturation 98% 02/29/2024 3:47 PM EDT Inhaled Oxygen Concentration - - Weight 103 kg (227 lb) 01/02/2025 3:27 PM EDT Height 172.7 cm (5' 8 ) 01/02/2025 3:27 PM EDT Body Mass Index 34.52 01/02/2025 3:27 PM EDT Plan of Treatment Health Maintenance Due Date Last Done Comments CT Colonography 1961 FIT DNA/Cologuard 1961 FIT 1961 FOBT 1961 Sigmoidoscopy 1961 Disability Screening 1961 Hepatitis C Screening 11/16/1979 Pneumococcal Vaccine: 50+ Years (1 of 1 - PCV) 11/16/2011 Zoster Vaccines (2 of 2) 06/27/2024 05/02/2024 Depression Screening 02/28/2025 02/29/2024, 11/30/2022 COVID-19 Vaccine (3 - 2024-2 6 season) 2025 06/19/2021, 10/03/2020 Influenza Vaccine (#1) 2025 SDOH Screening 12/25/2025 12/25/2024 Tobacco Screening 12/25/2025 12/25/2024 Alcohol/Substance Use Screening 01/02/2026 01/02/2025 Lipid Panel 08/27/2029 08/27/2024, 03/23/2022 Colonoscopy 03/30/2031 03/30/2021 Colorectal Cancer Screening 03/30/2031 DTaP/Tdap/Td Vaccines (2 - T d or Tdap) 05/02/2034 05/02/2024, 11/23/2016 RSV Patients and Patients Aged 60 years or older (1 - 1-dose 75+ series) 2036 HIV Screening Completed 03/23/2022 HIB Vaccines Aged Out No longer eligi ble based on patient's age to complete this topic HPV Vaccines Aged Out No longer eligi ble based on patient's age to complete this topic Hepatitis A Vaccines Aged Out No long er eligible based on patient's age to complete this topic Hepatitis B Vaccines Aged Out No long er eligible based on patient's age to complete this topic IPV Vaccines Aged Out No longer eligi ble based on patient's age to complete this topic Meningococcal B Vaccine Aged Out No l onger eligible based on patient's age to complete this topic Meningococcal Vaccine Aged Out No geo john eligible based on patient's age to complete this topic RSV under 20 months Aged Out No longe r eligible based on patient's age to complete this topic Rotavirus Vaccines Aged Out No longer eligible based on patient's age to complete this topic Procedures Procedure Name Priority Date/Time Associated Diagnosis Comments LIPID PANEL, STANDARD Routine 08/27/2024 9:07 AM EST Benign hypertension HIV 1/2 ANTIGEN/ANTIBODY, FOURTH GENERATION W/RFL Routine 03/23/2022 8:34 AM EDT HM COLONOSCOPY Routine 03/30/2021 10:51 AM EDT from Last 3 Months or Most Recently Relevant to Health Maintenance Results * (ABNORMAL) Lipid Panel, Standard (08/27/2024 9:07 AM EST) Triglycerides 415(H) <150 mg/dL [facility] Comment:Desirable Triglyceri de: less than 150 mg/dLBorderline High Triglyceride 150-199 mg/dLHigh Triglyceride: 200-499 mg/dLVery High Triglyceride: greater than or equal to 5OO mg/dL Cholesterol 173 <200 mg/dL [facility] Comment:Desirable Cholestero l: less than 200 mg/dLBorderline High Cholesterol: 200-239 mg/dLHigh Cholesterol: greater than 239 mg/dL LDL Cholesterol Calculated TNP <100 mg/dL [facility] Comment:Unable to calculate the LDL. The formula of Friedwald,Maddox, and Flaco is only valid if the triglycerides areless than 400 mg/dl. HDL Cholesterol 34(L) >40 mg/dL [facility] Comment:Desirable HDL: great er than 40 mg/dL Note: This HDL assay may give artificially low results in patients with liver disease. Blood Venous blood specimen / Unknown 08/27/2024 9:07 AM EST 08/27/2024 2:10 PM EST us Earl Briseno MD LAB BLOOD ORDERABL ES Final Result [facility] [address] [place] [phone] * HIV 1/2 ANTIGEN/ANTIBODY,FOURTH GENERATION W/RFL (03/23/2022 8:34 AM EDT) HIV-1/2 ANTIGEN AND ANTIBODIES, 4TH GENERATION W/ REFLEX NON-REACT [facility] NON-[facility]ACT [facility] Comment: HIV-1 antigen and HIV-1/HIV-2 antibodies were not detected. There is no laboratory evidence of HIV infection. PLEASE NOTE: This information has been disclosed to you from records whose confidentiality may be protected by state law. If your state requires such protection, then the state law prohibits you from making any further disclosure of the information without the specific written consent of the person to whom it pertains, or as otherwise permitted by law. A general authorization for the release of medical or other information is NOT sufficient for this purpose. For additional information please refer to http://education.[employer]/faq/CPG048 (This link is being provided for informational/ educational purposes only.) The performance of this assay has not been clinically validated in patients less than 2 years old. 03/23/2022 8:34 AM EDT Earl Briseno MD LAB BLOOD ORDERABL ES Final Result Performing Organization Address City/State/RUST Co de Phone Number [facility] [address] * Hm Colonoscopy (03/30/2021 10:51 AM EDT) Historical Provider HEALTH MAINTENANCE Final Result from Last 3 Months or Most Recently Relevant to Health Maintenance Insurance [facility] ONE CARE < 65 [facility] STANDARD Care Teams Senior Quality Assurance Specialist Relationship Specialty Start Date End Date MathisEarl Vazquez MD [address] [place] [address] TAMMIE Rincon [address] PCP - General Internal Medicine 12/19/19
--- OUTSIDE RECORDS SUMMARY | 2025-04-10 18:45 | XMS_ITS | Encounter Summary ---
Author Organization [employer] Address [address] [facility] 7 [place] [address] Care Team Providers Care Vacuum Extractor Operator Name Role Phone Earl Augustine MD Primary Care Prov ider Reason for Visit * Reason Onset Date Comments Med Refill 03/28/2024 Encounter Details Date Type Department Care Team ([facility] st Contact Info) Description 03/28/2024 Telephone [facility] CHC MED & PEDS [address] [place] [address] Earl Augustine MD [address] [place] [address] Med Refill Social History Tobacco Use Types Packs/Day Years Used Date Smoking Tobacco: Former Cigarettes 0.5 10 0 07/28/1999 - 07/28/2009 Depression Answer Date Recorded Patient Health Questionnaire-9 Score 0 11/30/2022 Housing Stability Answer Date Recorded What is your housing situation today? I have cate mack 05/09/[address] you li ve. Do you have problems with any of the following? None of the above 05/09/2023 Food Insecurity Answer Date Recorded Within the past 12 months, y ou worried that your food would run out before you got money to buy more: Never True 05/09/2023 Within the past 12 months,th e food you bought just didn't last and you didn't have enough money to get more: Never True Transportation Answer Date Recorded In the past 12 months, has l ack of transportation kept you from medical appts, meetings, work or from getting things needed for daily living? No 05/09/2023 Utilities Answer Date Recorded In the past 12 months, has t he electric, gas, oil or water company threatened to shut off services in your home? No 05/09/2023 Depression Answer Date Recorded Patient Health Questionnaire-2 Score 0 02/29/2024 Sex and Gender Information Value Date Recorded Sex Assigned at Male 05/24/2022 10:29 AM EDT Legal Sex Male 10:29 AM EDT Gender Identity Male 05/24/2022 10:29 AM EDT Sexual Orientation Straight 05/24/2022 10 :29 AM EDT documented as of this encounter Miscellaneous Notes * Telephone Encounter - Radha Toledo LPN - 03/28/2024 2:00 PM EDT Please note medication I not pended as according to [facility] LAST FILLED 07/02/23.PLEASE REVIEW * Telephone Encounter - Becky Walker - 03/28/2024 12:17 PM EDT TC from pt requesting medication refill. Medications needing refill : gabapentin (Neurontin) 800 MG tablet To be sent to:[facility]/pharmacy #[id number] - [place] - [address] [place] [address] documented in this encounter Plan of Treatment Not on file documented as of this encounter Visit Diagnoses Not on filedocumented in this encounter Additional Health Concerns Assessment Noted Time PHQ-9 Depression Total Score: 0 12/01/19 8:43 AM EDT documented as of this encounter Care Teams Vacuum Extractor Operator Relationship Specialty Start Date End Date Earl Augustine MD [address] [place] [address] [place] [id number] PCP - General Internal Medicine 12/19/19 documented as of this encounter
--- OUTSIDE RECORDS SUMMARY | 2025-04-10 18:45 | XMS_ITS | Encounter Summary ---
Author Organization [employer] Address [address] [facility] 7 [place] [address] Care Team Providers Care Equity Trader Name Role Phone Earl Augustine MD Primary Care Prov ider Reason for Visit * Reason Comments Med Refill Encounter Details Date Type Department Care Team ([facility] st Contact Info) Description 06/27/2023 Refill [facility] MEDICINE [address] [place] [address] Salazar Ward MD [address] [place], [place] [phone] Social History Tobacco Use Types Packs/Day Years [...] Date Recorded Patient Health Questionnaire-2 Score 0 11/30/2022 Sex and Gender Information Value Date Recorded [...] documented as of this encounter Care Teams Equity Trader Relationship Specialty Start Date End Date Earl Augustine MD [address] [place] [address] PCP - General Internal Medicine 12/19/19 documented as of this encounter
--- OUTSIDE RECORDS SUMMARY | 2025-04-10 18:45 | XMS_ITS | Encounter Summary ---
Author Organization [employer] Address [address] 7t [place] [address] Care Team Providers Care Creative Perfumer Name Role Phone Earl Augustine MD Primary Care Prov ider Encounter Details Date Type Department Care Team ([facility] st Contact Info) Description 11/08/2023 Orders Only [facility] MEDICINE [address] [place] [address] ProviderCedrick MD Social History Tobacco Use Types Packs/Day Years [...] on file documented as of this encounter Procedures Procedure Name Priority Date/Time Associated Diagnosis Comments HM COLONOSCOPY Routine 03/30/2021 10:51 AM EDT documented in this encounter Results * Hm Colonoscopy (03/30/2021 10:51 AM EDT) us Historical Provider HEALTH MAINTENANCE Final Result documented in this encounter Visit Diagnoses Not on filedocumented in this encounter Additional Health Concerns Assessment Noted Time PHQ-9 Depression Total Score: 0 12/01/19 23 8:43 AM EDT documented as of this encounter Care Teams Creative Perfumer Relationship Specialty Start Date End Date Earl Augustine MD [address] [place] [address] PCP - General Internal Medicine 12/19/19 documented as of this encounter
== END 2025-04-10 16:00 | disposition home or self-care (01) ==
LOC: HO.HUSH 15:16
PROVIDERS: PCP Internal Medicine; Visit Provider Urology
DX: R35.1 Nocturia (principal); R30.0 Dysuria; Z13.9 Encounter for screening, unspecified
CPT/HCPCS: 99213

== ENCOUNTER → 2025-04-10 15:15 | Outpatient (BNVA) | payer OTHER, SELFPAY | PROVIDERS: PCP Internal Medicine; Visit Provider Urology | DX: R35.1 Nocturia (principal); R30.0 Dysuria | CPT/HCPCS: 51798; 81003; 99212 ==

== ENCOUNTER 2025-04-11 08:58 | Outpatient (REF) | payer OTHER, SELFPAY ==
[2025-04-11 10:06] LABS: Alanine Aminotransferase 50 U/L (0-40); Albumin Level 4.1 g/dL (3.5-5.0); Alkaline Phosphatase 96 U/L (39-117); Anion Gap 10 (12-20); Aspartate Amino Transferase 37 U/L (5-37); Blood Urea Nitrogen 18 mg/dL (9-16); Calcium 9.2 mg/dL (8.4-10.2); Carbon Dioxide 28 mmol/L (22-29); Chloride 108 mmol/L (96-108); Cholesterol 168 mg/dL (<200); Estimated Glomerular Filt Rate > 60; HDL Cholesterol 30 mg/dL (>40); Potassium 3.7 mmol/L (3.3-5.1); Sodium 142 mmol/L (135-145); Total Protein 6.8 g/dL (6.5-8.0); Triglycerides 377 mg/dL (<150)
--- OUTSIDE RECORDS SUMMARY | 2025-04-11 10:21 | XMS_ITS | Encounter Summary ---
Author Organization [employer] Address [address] [address] [facility] [address] 7[address] [place] [address] Care Team Providers Care Indirect Sales Representative Name Role Phone Earl Augustine MD Primary Care Prov ider Encounter Details Date Type Department Care Team ([facility] st Contact Info) Description 11/08/2023 Orders Only [facility] MEDICINE [address] [place] [address] ProviderCedrick MD Social History Tobacco Use Types [...] documented as of this encounter Care Teams Indirect Sales Representative Relationship Specialty Start Date End Date Earl Augustine MD [address] [place] [id number] PCP - General Internal Medicine 12/19/19 documented as of this encounter
--- OUTSIDE RECORDS SUMMARY | 2025-04-11 10:21 | XMS_ITS | Encounter Summary ---
Author Organization [employer] Address [address] [facility] 7 [place] [address] Care Team Providers Care Residential Building Inspector Name Role Phone Earl Augustine MD Primary Care Prov ider Reason for Visit * Reason Onset Date Comments Nurse Triage 02/18/2025 Encounter Details Date Type Department Care Team ([facility] st Contact Info) Description 02/18/2025 Telephone [facility] CHC MED & PEDS [address] [place] [address] Earl Augustine MD [address] [place] [address] Nurse Triage Social History Tobacco Use Types [...] 02/18/2025 1:02 PM EDT Triage call with [facility] [place] [id number] Ismael Pt didn't answer x2. Left voice message to call [facility] triage line [phone]. * Telephone Encounter - Angel Gutierrez - 02/18/2025 12:00 PM EDT Symptom: Hip Pain - Not From Injury Outcome: Schedule an urgent appointment (within 1 hour) or talk to a nurse or provider soon Reason: Trouble walking The caller accepted this outcome. Contact pt at [phone] documented in this encounter Plan of Treatment Not on file documented as of this encounter Visit Diagnoses Not on filedocumented in this encounter Additional Health Concerns Assessment Noted Time PHQ-9 Depression Total Score: 0 12/01/19 23 8:43 AM EDT documented as of this encounter Care Teams Residential Building Inspector Relationship Specialty Start Date End Date Earl Augustine MD [address] [place] [address] PCP - General Internal Medicine 12/19/19 documented as of this encounter
--- OUTSIDE RECORDS SUMMARY | 2025-04-11 10:21 | XMS_ITS | Encounter Summary ---
Author Organization [employer] Address [address] [facility] 7 [place] [address] Care Team Providers Care Fur Stretcher Name Role Phone Earl Augustine MD Primary Care Prov ider Reason for Visit * Reason Comments Med Refill Encounter Details Date Type Department Care Team ([facility] st Contact Info) Description 06/27/2023 Refill [facility] MEDICINE [address] [place] [address] Salazar Ward MD [address] [place], [place] [phone] Social History Tobacco Use Types Packs/Day Years [...] documented as of this encounter Care Teams Fur Stretcher Relationship Specialty Start Date End Date Earl Augustine MD [address] [place] [address] PCP - General Internal Medicine 12/19/19 documented as of this encounter
--- OUTSIDE RECORDS SUMMARY | 2025-04-11 10:21 | XMS_ITS | Encounter Summary ---
Author Organization [employer] Address [address] [facility] 7 [place] [address] Care Team Providers Care Auto Vinyl Top Installer Name Role Phone Earl Augustine MD Primary Care Prov ider Reason for Visit * Reason Onset Date Comments Med Refill 03/28/2024 Encounter Details Date Type Department Care Team ([facility] st Contact Info) Description 03/28/2024 Telephone [facility] CHC MED & PEDS [address] [place] [address] Earl Augustine MD [address] [place] [address] Med Refill Social History Tobacco Use Types [...] (Neurontin) 800 MG tablet To be sent to:[facility]/pharmacy #[id number] - [place] - [address] [place] [address] documented in this encounter Plan of Treatment Not on file documented as of this encounter Visit Diagnoses Not on filedocumented in this encounter Additional Health Concerns Assessment Noted Time PHQ-9 Depression Total Score: 0 12/01/19 8:43 AM EDT documented as of this encounter Care Teams Auto Vinyl Top Installer Relationship Specialty Start Date End Date Earl Augustine MD [address] [place] [address] [place] [address] PCP - General Internal Medicine 12/19/19 documented as of this encounter
--- OUTSIDE RECORDS SUMMARY | 2025-04-11 10:21 | XMS_ITS | Encounter Summary ---
Author Organization [employer] Address [address] 7t [place] [address] Care Team Providers Care Saturation Diver Name Role Phone Earl Augustine MD Primary Care Prov ider Encounter Details Date Type Department Care Team ([facility] st Contact Info) Description 01/07/2025 Orders Only [facility] CHC MED & PEDS [address] [place] [address] Earl Augustine MD [address] [place] [address] Social History Tobacco Use Types Packs/Day Years [...] documented as of this encounter Care Teams Saturation Diver Relationship Specialty Start Date End Date Earl Augustine MD [address] [place] [id number] PCP - General Internal Medicine 12/19/19 documented as of this encounter
--- OUTSIDE RECORDS SUMMARY | 2025-04-11 10:21 | XMS_ITS | Clinical Summary ---
Author Organization [employer] Address [address] [facility] 7t [place] [address] Care Team Providers Care Water Quality Manager Name Role Phone Earl Augustine MD Primary [...] Type Department Care Team Description 04/02/2025 Telephone [facility] MEDICINE [address] [place] [address] Earl Augustine MD Nurse Triage 03/22/2025 Telephone [facility] MED[facility]INE [address] [place] [address] Earl Augustine MD Nurse Triage 03/09/2025 Refill [facility] MED[facility] [address] [place] [address] Earl Augustine MD 02/23/2025 Refill [facility] MED[facility] [address] [place] [address] Audrey ArlinCORIN landry 02/22/2025 Refill [facility] MED & PEDS [address] [place] [address] Earl Augustine MD 02/21/2025 9:30 AM EDT Telemedicine [facility] MED & PEDS [address] [place] [address] Earl Augustine MD Benign hypertension (Primary Dx); Dietary counseling; Exercise counseling; Pulmonary granuloma (CMS/HCC); Schwannoma of spinal cord (CMS/HCC); Mixed hyperlipidemia; Class 1 obesity due to excess calories with serious comorbidity and body mass index (BMI) of 34.0 to 34.9 in adult 02/21/2025 Travel 02/20/2025 Telephone [facility] MED & PEDS [address] [place] [address] Earl Augustine MD chart prep 02/18/2025 Telephone [facility] MED & PEDS [address] [place] [address] Earl Augustine MD Nurse Triage 01/20/2025 Refill [facility] MEDICINE [address] [place] [address] Earl Augustine MD 01/19/2025 Refill [facility] MED & PEDS [address] [place] [address] Earl Augustine MD Tinkartik pedis from Last [...] Use Screening 01/02/2026 01/02/2025 Lipid Panel 08/27/2029 04/11/2025, 08/27/2024, 03/23/2022 Colonoscopy 03/30/2031 03/30/2021 Colorectal Cancer [...] Associated Diagnosis Comments LIPID PANEL, STANDARD Routine 04/11/2025 9:11 AM EDT Benign hypertension COMPREHENSIVE METABOLIC PANEL Routine 04/11/2025 9:11 AM EDT Benign hypertension HIV /2 ANTIGEN/ANTIBODY, FOURTH GENERATION W/RFL Routine 03/23/2022 8:34 AM EDT HM COLONOSCOPY Routine 03/30/2021 10:51 AM EDT from Last 3 Months or Most Recently Relevant to Health Maintenance Results * (ABNORMAL) Lipid Panel, Standard (04/11/2025 9:11 AM EDT) Triglycerides 377(H) <150 mg/dL [facility] Comment:Desirable Triglyceri de: less than 150 mg/dLBorderline High Triglyceride 150-199 mg/dLHigh Triglyceride: 200-499 mg/dLVery High Triglyceride: greater than or equal to 5OO mg/dL Cholesterol 168 <200 mg/dL [facility] Comment:Desirable Cholestero l: less than 200 mg/dLBorderline High Cholesterol: 200-239 mg/dLHigh Cholesterol: greater than 239 mg/dL LDL Cholesterol Calculated 63 <100 mg/dL [facility] Comment:Desirable LDL: less than 100 mg/dLNear Optimal/Above Optimal LDL: 110- 129 mg/dLBorderline High LDL: 130-159 mg/dLHigh LDL: 160-189 mg/dLVery High LDL: greater than or equal to 190 mg/dL HDL Cholesterol 30(L) >40 mg/dL [facility] Comment:Desirable HDL: great er than 40 mg/dL Note: This HDL assay may give artificially low results in patients with liver disease. Blood Venous blood specimen / Unknown 04/11/2025 9:11 AM EDT 04/11/2025 9:11 AM EDT us Earl Briseno MD LAB BLOOD ORDERABL ES Final Result [facility] [address] [place] [address] [phone] * (ABNORMAL) Comprehensive Metabolic Panel (04/11/2025 9:11 AM EDT) Sodium 142 135 - 145 mmol/L [facility] Potassium 3.7 3.3 - 5.1 mmol/L [facility] Chloride 108 96 - 108 mmol/L [facility] Carbon Dioxide 28 22 - 29 mmol/L [facility] Anion Gap 10(L) 12 - 20 [facility] Urea Nitrogen (BUN) 18(H) 9 - 16 mg/dL [facility] Creatinine, Serum 0.73 0.5 - 1.4 mg/dL [facility] Estimated Glomerular Filt Rate >60 [facility] Comment:Chronic Kidney Disea se: Estimated GFR < 60 mL/min/1.26u5Asfufd Kidney Disease: Estimated GFR < 15 mL/min/1.73m2 Glucose 142(H) 60 - 115 mg/dL [facility] Calcium 9.2 8.4 - 10.2 mg/dL [facility] Bilirubin, Total 0.3 0.0 - 1.0 mg/dL [facility] Aspartate Amino Transferase 37 5 - 37 U/L [facility] Alanine Aminotransferase 50(H) 0 - 40 U/L [facility] Total Protein 6.8 6.5 - 8.0 g/dL [facility] Albumin Level 4.1 3.5 - 5.0 g/dL [facility] Alkaline Phosphatase 96 39 - 117 U/L [facility] Blood Venous blood specimen / Unknown 04/11/2025 9:11 AM EDT 04/11/2025 9:11 AM EDT Earl Briseno MD LAB BLOOD ORDERABL ES Final Result [facility] [address] [place] [address] [phone] * HIV 1/2 ANTIGEN/ANTIBODY,FOURTH GENERATION W/RFL (03/23/2022 8:34 AM EDT) HIV-1/2 ANTIGEN AND ANTIBODIES, 4TH GENERATION W/ REFLEX NON-REACT EDUARDO NON-REACT EDUARDO [facility] Comment: HIV-1 antigen and HIV-1/HIV-2 [...] purpose. For additional information please refer to http://education.OdinOtvet/faq/TMY989 (This link is being provided for informational/ educational purposes only.) The performance of this assay has not been clinically validated in patients less than 2 years old. 03/23/2022 8:34 AM EDT Earl Briseno MD LAB BLOOD ORDERABL ES Final Result Performing Organization Address City/State/ZIP Co tn Phone Number [facility] Anywhere [address] * Colonoscopy (03/30/2021 10:51 AM EDT) Historical Provider HEALTH MAINTENANCE Final Result from Last 3 Months or Most Recently Relevant to Health Maintenance Insurance [facility]ARE < [address] [place] [id number] [facility] STANDARD * Guarantor: Darío Klein Account Type Relation to Patient Date of Phone Billing Address Personal/Family Self [address] [place] Care Teams Water Quality Manager Relationship Specialty Start Date End Date MathisEarl Vazquez MD [address] [place] [address] [place] [address] PCP - General Internal Medicine 12/19/19
== END 2025-04-11 08:59 | disposition home or self-care (01) ==
LOC: HO.LAB 08:58
PROVIDERS: PCP Internal Medicine; Visit Provider Internal Medicine
DX: I10 Essential (primary) hypertension (principal)
CPT/HCPCS: 36415; 80053; 80061